=== PATIENT | female | born 2000 | race Caucasian/White ===

== ENCOUNTER → 2019-01-29 | Outpatient (CLI) | payer BC ==
--- NOTE | 2019-01-29 10:52 | XR ---
EXAMINATION TYPE: XR ankle complete LT DATE OF EXAM: 01/29/2019 COMPARISON: NONE HISTORY: Pain TECHNIQUE: 3 views of the left ankle are submitted for evaluation. FINDINGS: There is no evidence for fracture or dislocation. Ankle mortise is intact. Soft tissues are within normal limits. IMPRESSION: 1. No evidence for acute fracture.
== END ==
LOC: RADXRYALE 10:30
PROVIDERS: ATTEND Physician Assistant Medical
DX: S90.912A Unspecified superficial injury of left ankle, initial encounter (principal)